=== PATIENT | female | born 1960 | race Caucasian/White ===

== ENCOUNTER 2018-08-29 15:11 | Emergency (ER) | payer SELFPAY ==
[2018-08-29 15:43] LABS: #Lymphocytes 2.5 thou/uL (1.20-3.40); #Monocytes 0.5 thou/uL (0.11-0.59); #Neutrophils 2.8 thou/uL (1.40-6.50); %Basophils 0.5 % (0.0-1.0); %Eosinophils 0.7 % (0.0-10.0); %Lymphocytes 42.2 % (21.0-51.0); %Monocytes 8.4 % (0.0-10.0); %Neutrophils 48.1 % (42.0-75.0); Hemoglobin 13.2 g/dL (12.0-16.0); Mean Corpuscular HGB CONC 33.9 g/dL (32.0-36.0); Mean Corpuscular Hemoglobin 32.6 pg (27.0-31.0); Mean Corpuscular Volume 96.2 fL (78.0-98.0); Mean Platelet Volume 6.9 fL (7.4-10.4); Platelet Count 317 thou/uL (130-400); RBC Distribution Width 10.8 % (11.5-14.5); Red Blood Cell (RBC) Count 4.07 mill/uL (4.20-5.40); White Blood Cell (WBC) Count 5.9 thou/uL (4.8-10.8)
[2018-08-29 16:06] LABS: ALT (SGPT) 18 U/L (8-55); AST (SGOT) 17 U/L (5-34); Albumin 4.2 g/dL (3.5-5.0); Alkaline Phosphatase 67 U/L (40-150); Anion Gap 12 mmol/L (10-20); BUN (Urea Nitrogen) 18 mg/dL (9.8-20.1); Bilirubin, Total 0.2 mg/dL (0.2-1.2); Calc. Creatinine Clearance 0 mL/min (70-130); Calcium 9.5 mg/dL (7.8-10.44); Carbon Dioxide 23 mmol/L (22-29); Chloride 110 mmol/L (98-107); Estimated GFR-MDRD 85; Globulin 2.4 g/dL (2.4-3.5); Glucose 92 mg/dL (70-105); Protein, Total 6.6 g/dL (6.0-8.3); Sodium 141 mmol/L (136-145)
[2018-08-29 18:17] LABS: Troponin I 0.053 ng/mL (< 0.028)
[2018-08-29] MEDS ORDERED: Aspirin Chewable 81 MG TAB ONE (18:36)
== END 2018-08-29 18:45 | disposition home or self-care (01) ==
LOC: ERS 15:11
DX: I47.1 Supraventricular tachycardia (principal); R79.89 Other specified abnormal findings of blood chemistry
CPT/HCPCS: 36415; 80053; 84484; 85025; 93005; 94760